=== PATIENT | female | born 1975 | race Caucasian/White ===

== ENCOUNTER 2021-11-05 15:22 | Emergency (ER) | payer BC ==
[~2021-11-05] VITALS: Ht 170.2 cm; Wt 81.2 kg
[2021-11-05 15:22] VITALS: BP_SYST 122
--- NOTE | 2021-11-05 15:22 | NUR ---
BROUGHT INTO TRIAGE TENT AND TRIAGED. WILL ASSUME CARE.
--- NOTE | 2021-11-05 15:25 | NUR ---
PT STATES SHE HAS HAD COVID FOR LAST 3 DAYS AND NOW WITH CHEST TIGHTNESS AND DRY COUGH.
--- NOTE | 2021-11-05 15:50 | NUR ---
DR LÓPEZ OUT TO TRIAGE TENT FOR EVALUATION
--- NOTE | 2021-11-05 17:05 | NUR ---
AWAITING LAB RESULTS, NO CHANGES, NO FURTHER COMPLAINT OF CHEST PAIN/TIGHTNESS
[2021-11-05 17:50] LABS: BASOPHILS % (AUTO) 0.3 % (0.0-2.0); EOSINOPHILS % (AUTO) 0.1 % (0.0-4.0); LYMPHOCYTES # (AUTO) 1.2 K/uL (1.0-5.5); LYMPHOCYTES % (AUTO) 21.5 % (20.5-51.5); MEAN CORPUSCULAR VOLUME 90 fL (79.0-98.0); MONOCYTES # (AUTO) 0.5 K/uL (0.0-1.0); MONOCYTES % (AUTO) 9.4 % (1.7-9.3); NEUTROPHILS # (AUTO) 3.8 K/uL (1.8-7.7); NEUTROPHILS % (AUTO) 68.7 % (40.0-70.0); PLATELET COUNT (AUTO) 251 K/uL (130-430); RED CELL DISTRIBUTION WIDTH 13.3 % (9.0-15.0); WHITE BLOOD COUNT (AUTO) 5.5 K/uL (4.8-10.8)
[2021-11-05 18:03] LABS: ANION GAP 10 (5-15); CALCIUM 8.8 mg/dL (8.4-11.0); CHLORIDE 104 mmol/L (98-107); CREATININE 0.78 mg/dL (0.55-1.30); GLUCOSE 105 mg/dL (70-99); POTASSIUM 3.9 mmol/L (3.5-5.1); SODIUM SERUM 139 mmol/L (136-145); UREA NITROGEN, BLOOD 6 mg/dL (8-21)
[2021-11-05 18:16] LABS: ALANINE AMINOTRANSFERASE 28 U/L (12-78); ALBUMIN 3.5 g/dL (3.4-4.8); ASPARTATE AMINOTRANSFERASE 18 U/L (10-37); TOTAL BILIRUBIN 0.2 mg/dL (0.0-1.0)
[2021-11-05 18:28] LABS: GFR AFRICAN AMERICAN 103 mL/min (>90)
[2021-11-05] MEDS ORDERED: IBUP-1969 PO (18:32)
[2021-11-05] MEDS ORDERED: ALBU8.5H8 INH (18:32)
[2021-11-05] MEDS ORDERED: PRED20TA PO (18:32)
--- NOTE | 2021-11-05 18:55 | NUR ---
Patient given written and verbal discharge instructions and verbalizes understanding. ER MD discussed with patient the results and treatment provided. Patient in stable condition. ID arm band removed. Rx of PREDNISONE, IBUPROFEN, PROAIR given. Patient educated on pain management and to follow up with PMD. Pain Scale 0/10. Opportunity for questions provided and answered. Medication side effect fact sheet provided.
[2021-11-05 23:31] LABS: HEMOGLOBIN 12.3 g/dL (12.0-16.0); MEAN CORPUSCULAR HEMOGLOBIN 31 pg (27-31); MEAN CORPUSCULAR HGB CONC 34 % (32-36)
== END 2021-11-05 18:52 | disposition home or self-care (01) ==
LOC: SED 15:22
DX: U07.1 COVID-19 (principal); R07.9 Chest pain, unspecified; R51.9 Headache, unspecified; R05.9 Cough, unspecified; Z79.899 Other long term (current) drug therapy
CPT/HCPCS: 36415; 71045; 80053; 83880; 84484; 85025; 85379; 93005; 99285